=== PATIENT | male | born 1950 | race Caucasian/White ===

== ENCOUNTER → 2017-07-17 10:43 | Outpatient (CLI) | payer MEDICARE, BC, SELFPAY ==
--- NOTE | 2017-07-17 12:40 | NEURO ---
NCS and/or EMG Patient Report Ordering Doctor: Nelli Gil DATE OF SERVICE: 07/17/17 Ayaz Hagen is a 67 year old male who presents for electrodiagnostic testing. He has chief complaint of numbness and weakness in the hands. Electrodiagnostic findings: Median motor nerve demonstrates normal distal latency, amplitude and conduction velocity bilaterally. Normal ulnar motor response bilaterally, including conduction across the elbow. Mildly prolonged right median sensory latency is noted. Ulnar and radial sensory responses are normal. On needle EMG, 1+ fibrillations noted in the right flexor carpi ulnaris. All other muscles tested showed no evidence of denervation with normal motor unit action potentials. Electrodiagnostic assessment: This is an abnormal study. 1. Findings demonstrate right-sided median mononeuropathy, consistent with a mild right carpal tunnel syndrome. There is no electrodiagnostic evidence for left-sided carpal tunnel syndrome. 2. No evidence is noted for cervical radiculopathy. The denervation noted in the right flexor carpi ulnaris is of unclear clinical consequence. If there are any further questions, please do not hesitate to contact me.
== END ==
PROVIDERS: Family Provider Family Medicine; PCP Family Medicine
DX: G56.03 Carpal tunnel syndrome, bilateral upper limbs (principal)
CPT/HCPCS: 95886; 95912

== ENCOUNTER 2024-05-13 09:29 | Day surgery (SDC) | payer MEDICARE, SELFPAY ==
[2024-05-13] VITALS (8 sets, daily range): BP systolic 95–134; BP diastolic 60–77; PULSE 56–64; RESP 16–18; TEMP 36.1–36.6; O2SAT 95–100; BMI 29.9
--- NOTE | 2024-05-13 11:15 | EGD_PTH ---
PATIENT: CHINEDU LANDRY LOC: EN U#:[id number] AGE/SX: 74/M ROOM: RE05/13/[address]: Dr. Sal Logan DO : 1950 BED: DIS: 05/13/2024 SPEC #: [id number] RECD: 05/13/24 15:03 STATUS: SABINE GUTIERREZGet #: [id number] RUTH: 05/13/24 11:[address]: Sal Logan DEPT: SURGICAL PATHOLOGY RECD BY: Cecil Mcdonough ENTERED: 05/13/24 15:04 SP TYPE: EGD BIOPSY OT DR: Dr. Alex Jones MD Tissues: A - Gastric mucous membrane B - Esophagus, NOS C - Colon, NOS D - Sigmoid colon biopsy Procedures: Special Stain Group I Surgery Specimen Level IV GMS Stain (control) Alcian Blue/PAS (control) HEADER OPERATION: Colonoscopy with biopsy, EGD with biopsy PRE-OP DIAGNOSIS: Abdominal symptoms TISSUE SUBMITTED: A- Gastric body biopsy, B- Random esophagus biopsy, C- Terminal ileum biopsy, D- Sigmoid polyp biopsy MICROSCOPIC DIAGNOSIS A. Gastric body, biopsy: Mild and moderate gastritis. See microscopic description and comment. B. Esopahgus, random biopsy: Fragments of squamous epithelium with acute inflammation. A fragment of gastric mucosa with mild chronic inflammation. Intestinal metaplasia (goblet cell metaplasia) not identified. See comment. C. Terminal ileum, biopsy: Fragments of small intestinal mucosa, no pathologic diagnosis. See comment. D. Sigmoid colon polyp, biopsy: Hyperplastic polyp. [facility] 05/14/2024 COMMENT A. The results of immunohistochemistry for Helicobacter pylori will be reported separately ([id number]). B. Alcian blue/PAS stain with matched control is used in the evaluation of the specimen. Special stain for fungi is negative for organisms; matched control is appropriate. C. Prominent lymphoid aggregates are noted. MICROSCOPIC DESCRIPTION Slides are reviewed. A. The specimen shows fragments of gastric mucosa with chronic inflammatory cell infiltrates in the lamina propria consisting of lymphocytes and plasma cells, consistent with mild and moderate chronic gastritis. GROSS DESCRIPTION A. Received in fixative is one container labeled with the patient's name and designated Gastric body biopsy. The specimen consists of multiple irregular fragments of light grant soft tissue that in aggregate measure 1 x 0.4 x 0.1 cm. The specimen is totally submitted in one cassette. B. Received in fixative is one container labeled with the patient's name and designated Random esophagus biopsy. The specimen consists of multiple irregular fragments of light grant soft tissue that in aggregate measure 1 x 0.5 x 0.1 cm. The specimen is totally submitted in one cassette. C. Received in fixative is one container labeled with the patient's name and designated Terminal ileum biopsy. The specimen consists of multiple irregular fragments of light grant soft tissue that in aggregate measure 1 x 0.3 x 0.1 cm. The specimen is totally submitted in one cassette. D. Received in fixative is one container labeled with the patient's name and designated Sigmoid polyp biopsy. The specimen consists of one irregular fragment of light grant soft tissue that measures 0.4 x 0.3 x 0.1 cm. The specimen is totally submitted in one cassette. [facility] 05/13/2024 TC:3 CPT:62535h1,21934,71931
--- NOTE | 2024-05-13 11:15 | IMM_PTH ---
PATIENT: CHINEDU LANDRY LOC: EN U#:[id number] AGE/SX: 74/M ROOM: RE05/13/[address]: Dr. Sal Logan DO : 1950 BED: DIS: 05/13/2024 SPEC #: [id number] RECD: 05/13/24 14:12 STATUS: SABINE REQ #: [id number] RUTH: 05/13/24 11:[address]: Sal Logan DEPT: IMMUNOHISTOCHEMISTRY RECD BY: Cecil Mcdonough ENTERED: 05/13/24 14:13 SP TYPE: IMMUNO OTHR DR: Dr. Alex Jones MD Tissues: A - Gastric mucous membrane Procedures: H Pylori (initial) PHYSICIAN & INSTITUTION [place] [address] SPECIMEN INFORMATION: Tissue Source: A- Gastric body biopsy Clinical Info: Abdominal symptoms Specimen Number: [id number] CPT code: 24962 METHODOLOGY: Deparaffinized sections of prefer/formalin-fixed tissue or PAP/DQ stained slides are incubated with monoclonal/polyclonal antibodies/oligonucleotide probes. Localization is made via biotin free immunoperoxidase method. Appropriate controls are performed and reacted as expected. Results on target cell population are indicated in the following table: RESULTS: ANTIBODY / CLONE RESULT Block A H Pylori (polyclonal) negative These tests were developed and their performance characteristics determined by [facility]. They may not have been cleared or approved by the U.S. Food and Drug Administration. The FDA has determined that such clearance or approval is not necessary. The above immunohistochemical/dualISH markers are ordered and reviewed by the Pathologist. INTERPRETATION: A. Gastric body, biopsy: Negative for Helicobacter pylori organisms. 05/14/2024
--- NOTE | 2024-05-13 11:16 | PCM.PRE.AN2 ---
ASA Classification* ASA Classification ASA Classification: 2 Assessment & Plan Anesthesia* Anesthesia Assessment Anesthesia Assessment: Discussed sedation and/or anesthesia options, risks, benefits, and alternatives with patient/parents/legal guardian/POA. Questions invited. The patient/parents/legal guardian/POA seems to understand and agrees to proceed with anesthesia plan. Reviewed the physical assessment, medical history, allergy history and patient home medications list prior to surgery/procedure/anesthetic and documented any changes. Performed airway and anesthesia risk assessments. Anesthesia Type Anesthesia Type: MAC History Source History Obtained from:: Patient and Chart Anesthesia Focused Assessment* Temperature: 98 F Pulse Rate: 64 Blood Pressure: 134/77 Respiratory Rate: 16 Pulse Ox: 100 Oxygen Delivery Method: Room Air Airway Assessment Mouth opens: >3 cm Mallampati Score: IV Teeth Condition: Caps/Crowns (Patient has multiple crowns. All tight.) Neck Range of motion (ROM): Full ROM Focused Labs Anesthesia Preop lab: CBC CHEMISTRY COAG Pre-Assessment Diagnosis/Proposed Procedure Planned Operative Procedure(s): EGD, Colonoscopy Anesthesia History Anesthesia History - delivery architect: Anesthesia History - delivery architect Hx Hospitalization No 05/11/24 14:34 Any Problems With Anesthesia No 05/11/24 14:34 Cholinesterase deficiency No 05/11/24 14:34 You/Your Family Experience No 05/11/24 14:34 fever (hyperthermia) with Relationship Recent Exposure to Contagious No 05/13/24 10:10 Disease Does patient have nerve No 05/11/24 14:34 stimulator Patient instructed to have device shut off --Does patient have Pacemaker No 05/13/24 10:10 or ICD? When Was Last Pacemaker Check QUESTION #4 FULL TEXT: You/Your Family Experience fever (hyperthermia) with Anesthesia Last Oral Intake Last Oral intake: Last Oral Intake NPO since 08:00 05/13/24 10:10 Meds taken in AM with sips of No 05/13/24 10:10 water? Meds patient instructed to take am of surgery Any additional information?: Yes NPO since: 08:00 (Patient finished prep at 8 AM.) PONV PONV - delivery architect: PONV - delivery architect Female No 05/11/24 14:34 HX of Motion Sickness Yes 05/11/24 14:34 HX of N/V After Surgery No 05/11/24 14:34 Non-Smoker Yes 05/11/24 14:34 Duration of Surgery greater No 05/11/24 14:34 than 60 minutes Number of Risk Factors 2 05/11/24 14:34 PONV Score Moderate Risk 05/11/24 14:34 Height & Weight Height & Weight: Anesthesia: Height & Weight Height 5 ft 6 in 05/13/24 10:10 Weight: 84 kg 05/13/24 10:10 Body Mass Index (BMI) 29.9 05/13/24 10:10 Respiratory Assessment Respiratory Assessment - delivery architect: Respiratory Tract Infection Hx - delivery architect Hx Respiratory Tract Infection No 05/11/24 14:34 STOP Sleep Apnea STOP Sleep Apnea - delivery architect: STOP Sleep Apnea - delivery architect Hx Hypertension Yes: per pt, controlled on 05/11/24 14:34 meds Hx Sleep Apnea Yes 05/11/24 14:34 CPAP Yes 05/11/24 14:34 BIPAP No 05/11/24 14:34 Do you snore loudly (louder than talking or can be heard Do you often feel tired/ fatigued/ sleepy during daytime? Has anyone observed you stop breathing during sleep? STOP Results Positive 05/11/24 14:34 QUESTION #5 FULL TEXT : Do you snore loudly (louder than talking or can be heard through closed doors)? Tobacco Use History Tobacco Use History - delivery architect: Tobacco Use History - delivery architect Tobacco Use Smoking Status Never smoker 05/11/24 14:34 Hx Tobacco Use No 05/11/24 14:34 Years Smoking Packs Smoked per Day Smoking Cessation Date was within the last 15 years Hx Smoking Cessation Date Hx Smoking Cessation Counseling Hematologic Medial History Hematologic Hx - delivery architect: Hematologic Medical Hx - outside residential sales professional Hx of Blood Transfusion No 05/11/24 14:34 Hx of Transfusion in last 3 No 05/11/24 14:34 Months Date of Last Transfusion (if within last 3 months) Ever experience any problems No 05/11/24 14:34 with transfusion(s)? Specify any problems Hx of Preganancy in last 3 N/A 05/11/24 14:34 Months Nurse Filling Out Transfusion MGRIFFITH 05/11/24 14:34 & Questions: Date: 05/11/24 05/11/24 14:34 Time: 14:36 05/11/24 14:34 Patient unable to answer at this time (ie. confused, unrespo /Reproduction History /Reproductive History - delivery architect: /Reproductive Hx- delivery architect Hx Now Gestational Age (in weeks): EDC: Hx Hx Para Hx Section SAB PFSH Medical History Wears glasses Depression Eczema High cholesterol Restless legs Gastric reflux CPAP (continuous positive airway pressure) dependence Non-smoker Chronic cough History of stress test History of echocardiogram Hypertension Home Medications ?Medication ?Instructions ?Recorded ?Last Taken ?Type amlodipine 5 mg tablet 5 mg PO QHS 03/04/24 05/12/24 History atorvastatin 20 mg tablet 20 mg PO QHS 03/04/24 05/12/24 History betamethasone dipropionate 0.05 % 1 applic topical QDAY PRN rash 03/04/24 Unknown History topical cream esomeprazole magnesium 40 mg 40 mg PO QDAY 03/04/24 05/12/24 History capsule,delayed release fluoxetine 40 mg capsule 40 mg PO QDAY 03/04/24 05/12/24 History lisinopril 20 mg tablet 20 mg PO QHS 03/04/24 05/12/24 History naproxen sodium 220 mg tablet 220 mg PO Q12H PRN pain 03/04/24 05/12/24 History (Aleve) pramipexole 0.25 mg tablet 0.25 mg PO QHS 03/04/24 05/12/24 History Allergy/AdvReac Type Severity Reaction Status Date / Time No Known Allergies Allergy Verified 05/13/24 10:09 Surgical History History of colonoscopy History of cholecystectomy History of tonsillectomy Social History Smoking Status: Never smoker Review of Systems (Anesthesia) ROS Narrative System reviewed and no additional complaints, except as documented.
--- NOTE | 2024-05-13 11:49 | PCM.HP.STD ---
HPI - General General Date of Admission: 05/13/24 Date of Service: 05/13/24 Chief Complaint: abdominal pain, bloating and screening colonoscopy HPI Narrative Chief Complaint: abdominal pain Details: CHINEDU LANDRY, is a 73 M who presents for endoscopic evaluation of abdominal pain, bloating and screening colonoscopy. Pt has had years of RLQ pain after eating. The pain feels bloated and crampy. It is only relieved with time and he has never tried any medication. It is not constant. He at first thought it may be related to his gallbladder and had that out about 10 years ago. This did not resolve his issues. He does have a hx of pancreatitis in 2022 of unknown etiology. He does not drink alcohol and has no hx of diabetes. His last colonoscopy was over 15 years ago. He denies constipation, diarrhea, melena, and n/v. CT Abd/pelvis 01.03.24; without abnormality ROS Const Constitutional: No fatigue, fever(s) or weight change ENT ENT: No difficulty swallowing Gastro GI: Positive for bloating, diarrhea and excessive flatus; No abdominal pain, belching, change in bowel habits, change in stool character, coffee ground emesis, constipation, cramping, heartburn, difficulty swallowing, feeling full early, incontinent of stools, Vomiting blood/hematemesis, Blood in stool, loose stools, Black,tarry stools, nausea/dyspepsia, pain with swallowing, vomiting or other Musc Musculoskeletal: Positive for joint pain, stiffness and Arthritis Skin Skin: Positive for dry skin and itchy eyes; No yellowing of the eye Psych Psychiatric: No anxiety and Positive for depression Endo Endocrine: No fatigue or weight change Aller/Imm Allergy/Immunologic: Positive for itchy eyes Pancho/Lymp Hematologic/Lymphatic: No easy bleeding or easy bruising Exam Const General: cooperative and comfortable Nutritional Appearance: average body habitus and well nourished [facility] Head: normal to inspection Ears: hearing grossly normal bilaterally Nose: external nose normal Face and sinus: normal facial exam Eyes General: appearance normal, both eyes and all related structures Neck Neck: normal visual inspection Chest Chest palpation & inspection: normal inspection of the chest and normal palpation of entire chest wall Resp Effort & Inspection: normal respiratory effort Auscultation: Bilateral: Clear to Auscultation Cardio Palpation: normal PMI Rate: regular rate Rhythm: regular rhythm GI Inspection: normal to inspection Auscultation: normal bowel sounds Percussion: normal to percussion Palpation: no hepatosplenomegaly Skin General: no rashes or lesions noted Neuro General: patient alert Extrem General: normal to inspection Psych Affect: normal affect Assessment and Plan Assessment and Plan (1) Abdominal symptoms: Plan: This is a 73 yo male pt here today for establishment with [facility]. Pt has had years of RLQ pain after eating of unknown etiology. He is s/p cholecystectomy over 10 years ago. He will undergo colonoscopy and EGD to assess his GI tract. Ct scan from December 2023 was w/o abnormalities.He is agreeable to this plan. Will consider further work up pending these results. -Colonoscopy -EGD -f/u after procedures PENDING SALE TO [facility] Medical History Wears glasses Depression Eczema High cholesterol Restless legs Gastric reflux CPAP (continuous positive airway pressure) dependence Non-smoker Chronic cough History of stress test History of echocardiogram Hypertension Home Medications ?Medication ?Instructions ?Recorded ?Last Taken ?Type amlodipine 5 mg tablet 5 mg PO QHS 03/04/24 05/12/24 History atorvastatin 20 mg tablet 20 mg PO QHS 03/04/24 05/12/24 History betamethasone dipropionate 0.05 % 1 applic topical QDAY PRN rash 03/04/24 Unknown History topical cream esomeprazole magnesium 40 mg 40 mg PO QDAY 03/04/24 05/12/24 History capsule,delayed release fluoxetine 40 mg capsule 40 mg PO QDAY 03/04/24 05/12/24 History lisinopril 20 mg tablet 20 mg PO QHS 03/04/24 05/12/24 History naproxen sodium 220 mg tablet 220 mg PO Q12H PRN pain 03/04/24 05/12/24 History (Aleve) pramipexole 0.25 mg tablet 0.25 mg PO QHS 03/04/24 05/12/24 History Allergy/AdvReac Type Severity Reaction Status Date / Time No Known Allergies Allergy Verified 05/13/24 10:09 Surgical History History of colonoscopy History of cholecystectomy History of tonsillectomy Social History Smoking Status: Never smoker ROS Constitutional Constitutional: Denies fatigue, fever(s), poor appetite, weight gain or weight loss Gastrointestinal Gastrointestinal: Denies belching, bloating, change in bowel habits, change in stool character, chewing difficulty, coffee ground emesis, constipation, cramping, diarrhea, dyspepsia, dysphagia, early satiety, excessive flatus, fecal incontinence, heartburn, hematemesis, hematochezia, hemorrhoids, loose stools, melena, nausea, odynophagia, rectal bleeding, tenesmus, vomiting or weight changes Vital Signs Vital Signs Vital Signs: 05/13/24 10:10 05/13/24 10:10 05/13/24 11:20 Temperature 98 F 98 F Temperature Source Temporal Pulse Rate 64 64 Respiratory Rate 16 16 Respiratory Pattern Normal Blood Pressure 134/77 H 134/77 H Blood Pressure Mean 96 Blood Pressure Source Monitor Blood Pressure Position Semi-Fowlers Blood Pressure Location Right Arm Pulse Ox 100 100 Oxygen Delivery Method Room Air Room Air Weight Weight: 185 lb 3.013 oz Body Mass Index (BMI) 29.9 Physical Exam Const alert, oriented x3, no apparent distress and healthy appearing General Appearance: cooperative GI normal to inspection, nondistended, normoactive bowel sounds, soft to palpation, non-tender and non-distended Percussion: normal to percussion Rectal Exam: deferred Assessment & Plan Assessment/Plan (1) Abdominal pain: (2) Screening for colon cancer: PLAN: Assessment and Plan (1) Abdominal symptoms: Plan: This is a 73 yo male pt here today for establishment with [facility]. Pt has had years of RLQ pain after eating of unknown etiology. He is s/p cholecystectomy over 10 years ago. He will undergo colonoscopy and EGD to assess his GI tract. Ct scan from December 2023 was w/o abnormalities.He is agreeable to this plan. Will consider further work up pending these results. -Colonoscopy -EGD -f/u after procedures
--- NOTE | 2024-05-13 12:35 | PCM.POST.ANE ---
Anesthesia: Postop Eval I Current Vital Signs Temperature: 97.3 F Pulse Rate: 59 Blood Pressure: 103/62 Respiratory Rate: 18 Pulse Ox: 95 Oxygen Delivery Method: Room Air Assessment Airway patent: Yes Spontaneous unlabored respirations: Yes Mental status: Asleep nausea: No Vomiting: No Anesthesia Complication: No Fluid Hydration Crystalloid volume administer (ml): 60 Total IV fluid infused: 60 Progress Note Anesthesia document: Postop Eval 1 completed: Yes
--- NOTE | 2024-05-13 12:42 | OP.EGD_ITS ---
Patient Name: Ayaz Hagen Procedure Date: 05/13/2024 11:59 AM Date of : 1950 Age: 74 Procedure: Upper GI endoscopy Indications: Epigastric abdominal pain, Functional Dyspepsia Providers: Sal Logan DO Referring MD: Alex Jones Medicines: Monitored Anesthesia Care Patient Profile: This is a 74 year old male. Refer to note in patient chart for documentation of history and physical. Patient has symptoms of chronic abdominal cramping and acute abdominal distention. Complications: No immediate complications. Procedure: Pre-Anesthesia Assessment: - Prior to the procedure, a History and Physical was performed, and patient medications and allergies were reviewed. The patient is competent. The risks and benefits of the procedure and the sedation options and risks were discussed with the patient. All questions were answered and informed consent was obtained. Patient identification and proposed procedure were verified by the physician in the pre-procedure area. Mental Status Examination: alert and oriented. Airway Examination: normal oropharyngeal airway and neck mobility. Respiratory Examination: clear to auscultation. CV Examination: normal. Prophylactic Antibiotics: The patient does not require prophylactic antibiotics. Prior Anticoagulants: The patient has taken no anticoagulant or antiplatelet agents except for NSAID medication. ASA Grade Assessment: II - A patient with mild systemic disease. After reviewing the risks and benefits, the patient was deemed in satisfactory condition to undergo the procedure. The anesthesia plan was to use monitored anesthesia care (MAC). Immediately prior to administration of medications, the patient was re-assessed for adequacy to receive sedatives. The heart rate, respiratory rate, oxygen saturations, blood pressure, adequacy of pulmonary ventilation, and response to care were monitored throughout the procedure. The physical status of the patient was re-assessed after the procedure. After obtaining informed consent, the endoscope was passed under direct vision. Throughout the procedure, the patient's blood pressure, pulse, and oxygen saturations were monitored continuously. The pediatric colonoscope was introduced through the mouth, and advanced to the third part of duodenum. The upper GI endoscopy was accomplished without difficulty. The patient tolerated the procedure well. Scope In: 12:07:46 PM Scope Out: 12:11:09 PM Total Procedure Duration Time 0 hours 3 minutes 23 seconds Findings: Non-severe esophagitis with no bleeding was found 34 to 39 cm from the incisors. Biopsies were obtained from the proximal and distal esophagus with cold forceps for histology of suspected eosinophilic esophagitis. Bilious fluid was found in the gastric body. Biopsies were taken with a cold forceps for Helicobacter pylori testing. Verification of patient identification for the specimen was done. Biopsies were taken with a cold forceps for histology. Verification of patient identification for the specimen was done. Estimated blood loss was minimal. No gross lesions were noted in the first portion of the duodenum. Impression: - Non-severe reflux esophagitis with no bleeding. - Bilious gastric fluid. Biopsied. - No gross lesions in the first portion of the duodenum. - Biopsies were taken with a cold forceps for evaluation of eosinophilic esophagitis. Recommendation: - Discharge patient to home. - Resume previous diet. - Continue present medications. - Await pathology results. Procedure Code(s): --- Professional --- 99113, Esophagogastroduodenoscopy, flexible, transoral; with biopsy, single or multiple CPT copyright 2021 [employer]. All rights reserved. The codes documented in this report are preliminary and upon outpatient coder review may be revised to meet current compliance requirements. Sal Logan DO 05/13/2024 12:42:31 PM This report has been signed electronically. Number of Addenda: 0 Note Initiated On: 05/13/2024 11:59 AM
--- NOTE | 2024-05-13 12:43 | OP.CCLET_ITS ---
05/13/2024 Alex Jones Re : Upper GI endoscopy procedure for Ayaz Jones This procedure was performed on Monday, May 13, 2024. My impressions and recommendations are as follows: Impressions : - Non-severe reflux esophagitis with no bleeding. - Bilious gastric fluid. Biopsied. - No gross lesions in the first portion of the duodenum. - Biopsies were taken with a cold forceps for evaluation of eosinophilic esophagitis. Recommendations : - Discharge patient to home. - Resume previous diet. - Continue present medications. - Await pathology results. My findings are described in the full procedure note, which is enclosed. If I can be of further assistance, please feel free to contact me at . Sincerely, Sal Logan, 05/13/2024 12:42:31 PM This report has been signed electronically.
--- NOTE | 2024-05-13 12:44 | OP.COLON_ITS ---
Patient Name: Ayaz Hagen Procedure Date: 05/13/2024 12:11 PM Date of : 1950 Age: 74 Procedure: Colonoscopy Indications: Screening for colorectal malignant neoplasm Providers: Sal Logan DO Referring MD: Alex Jones Medicines: Monitored Anesthesia Care Patient Profile: This is a 74 year old male. Refer to note in patient chart for documentation of history and physical. Patient has symptoms of chronic abdominal cramping and acute abdominal distention. Last Colonoscopy: more than 10 years ago. Complications: No immediate complications. Procedure: Pre-Anesthesia Assessment: - Prior to the procedure, a History and Physical was performed, and patient medications and allergies were reviewed. The patient is competent. The risks and benefits of the procedure and the sedation options and risks were discussed with the patient. All questions were answered and informed consent was obtained. Patient identification and proposed procedure were verified by the physician in the pre-procedure area. Mental Status Examination: alert and oriented. Airway Examination: normal oropharyngeal airway and neck mobility. Respiratory Examination: clear to auscultation. CV Examination: normal. Prophylactic Antibiotics: The patient does not require prophylactic antibiotics. Prior Anticoagulants: The patient has taken no anticoagulant or antiplatelet agents except for NSAID medication. ASA Grade Assessment: II - A patient with mild systemic disease. After reviewing the risks and benefits, the patient was deemed in satisfactory condition to undergo the procedure. The anesthesia plan was to use monitored anesthesia care (MAC). Immediately prior to administration of medications, the patient was re-assessed for adequacy to receive sedatives. The heart rate, respiratory rate, oxygen saturations, blood pressure, adequacy of pulmonary ventilation, and response to care were monitored throughout the procedure. The physical status of the patient was re-assessed after the procedure. After I obtained informed consent, the scope was passed under direct vision. Throughout the procedure, the patient's blood pressure, pulse, and oxygen saturations were monitored continuously. The pediatric colonoscope was introduced through the anus and advanced to the terminal ileum. The colonoscopy was performed without difficulty. The patient tolerated the procedure well. The quality of the bowel preparation was adequate. The terminal ileum, ileocecal valve, appendiceal orifice, and rectum were photographed. Scope In: 12:12:51 PM Scope Withdrawal Time 0 hours 8 minutes 31 seconds Scope Out: 12:25:44 PM Total Procedure Duration Time 0 hours 12 minutes 53 seconds Findings: The perianal and digital rectal examinations were normal. A few small-mouthed diverticula were found in the recto-sigmoid colon, sigmoid colon and descending colon. Localized mild mucosal changes characterized by congestion (edema) were found in the terminal ileum. Biopsies were taken with a cold forceps for histology. Verification of patient identification for the specimen was done. Estimated blood loss was minimal. Impression: - Diverticulosis in the recto-sigmoid colon, in the sigmoid colon and in the descending colon. - Mild mucosal changes were found in the ileum secondary to ileitis. Biopsied. Recommendation: - Discharge patient to home. - Resume previous diet. - Continue present medications. - Await pathology results. - Repeat colonoscopy in 5 years for surveillance. Procedure Code(s): --- Professional --- 57874, Colonoscopy, flexible; with biopsy, single or multiple CPT copyright 2021 [employer]. All rights reserved. The codes documented in this report are preliminary and upon adhesion tester review may be revised to meet current compliance requirements. Sal Logan DO 05/13/2024 12:44:07 PM This report has been signed electronically. Number of Addenda: 0 Note Initiated On: 05/13/2024 12:11 PM
--- NOTE | 2024-05-13 12:44 | OP.CCLET_ITS ---
05/13/2024 Alex Jones Re : Colonoscopy procedure for Ayaz Jones This procedure was performed on Monday, May 13, 2024. My impressions and recommendations are as follows: Impressions : - Diverticulosis in the recto-sigmoid colon, in the sigmoid colon and in the descending colon. - Mild mucosal changes were found in the ileum secondary to ileitis. Biopsied. Recommendations : - Discharge patient to home. - Resume previous diet. - Continue present medications. - Await pathology results. - Repeat colonoscopy in 5 years for surveillance. My findings are described in the full procedure note, which is enclosed. If I can be of further assistance, please feel free to contact me at . Sincerely, Sal Logan, 05/13/2024 12:44:07 PM This report has been signed electronically.
--- NOTE | 2024-05-13 13:35 | PCM.POSTANE2 ---
Anesthesia Postop Eval I Sum Postop Eval Completion status Anesthesia document: Postop Eval 1 completed: Yes Anesthesia Postop Eval I Summary Anesthesia Postop Eval I Summary: Anesthesia Postop Eval I: Assessment Summary Airway patent Yes 05/13/24 12:37 [email or web address] Spontaneous unlabored Yes 05/13/24 12:37 [email or web address] respirations Mental status Asleep 05/13/24 12:37 [email or web address] nausea No 05/13/24 12:37 [email or web address] Vomiting No 05/13/24 12:37 [email or web address] Anesthesia Postop Eval I: Fluid Summary Crystalloid volume administer 60 05/13/24 12:37 [email or web address] (ml) Colloids volume administered ( ml) Blood Product volume administered (ml) Total IV fluid infused 60 05/13/24 12:37 [email or web address] Anesthesia Postop Eval I: Summary Notes Anesthesia Complication No 05/13/24 12:37 [email or web address] Anesthesia Complication Comment: Post-operative progress note Anesthesia: Postop Eval II Evaluation Mental status: Awake Pain Level: 0 nausea: No Vomiting: No
== END 2024-05-13 13:19 | disposition home or self-care (01) ==
LOC: EN 09:36 → AC 09:56
PROVIDERS: PCP Family Medicine; Referring Provider Family Medicine; Visit Provider Internal Medicine Gastroenterology
PROC: 0DJD8ZZ Inspection of Lower Intestinal Tract, Via Natural or Artificial Opening Endoscopic (ICD-10-PCS; CPT 45378; principal; 2024-05-13 11:10)
DX: Z12.11 Encounter for screening for malignant neoplasm of colon (principal); K57.30 Diverticulosis of large intestine without perforation or abscess without bleeding; E78.00 Pure hypercholesterolemia, unspecified; I10 Essential (primary) hypertension; K29.70 Gastritis, unspecified, without bleeding; K21.00 Gastro-esophageal reflux disease with esophagitis, without bleeding; K63.89 Other specified diseases of intestine; K63.5 Polyp of colon; Z79.899 Other long term (current) drug therapy
CPT/HCPCS: 43239; 45380; 88305; 88312; 88342; A4216; J2405